=== PATIENT | female | born 1990 | race Caucasian/White ===

== ENCOUNTER 2020-10-23 13:08 | Inpatient (IN) | payer BC ==
[~2020-10-23] VITALS: Ht 172.7 cm; Wt 82.7 kg
[2020-10-23 19:20] VITALS: BP 126/77; PULSE 105; TEMP 98.3
--- NOTE | 2020-10-23 19:20 | NUR ---
1920 [id number] WEEK GEST TO LR6 FOR CYTOTEC INDUCTION OF LABOR. EFM ON. ADM ASSESSMENT COMPLETED AND PERMITS SIGNED. STATES HAS FELT LIKE UTERUS GETTING TIGHT SOMETIMES THROUGHOUT THE DAY BUT NO C/O CONTRACTIONS.
[2020-10-23] MEDS ORDERED: PRENATAL TABLET PO (19:23)
[2020-10-23] MEDS ORDERED: PROTONIX20 MG PO (19:23)
--- NOTE | 2020-10-23 19:50 | NUR ---
1949 INT STARTED AND LAB OBTAINED. DR LIGHT CALLED IN FOR UPDATE OF PT ARRIVAL. 1999 SVE /-2. 2003 CYTOTEC 50 MCG PO GIVEN. UP TO BR WITH HUSBANDS HELP AND THEN RETURNED TO BED WITH HUSBANDS HELP.
[2020-10-23 20:00] VITALS: BP 123/63; PULSE 100
[2020-10-23 20:30] VITALS: BP 117/77; PULSE 95
[2020-10-23 20:55] LABS: BASO % 0.2 % (0.0-2.0); EOS # 0.1 (0.0-0.7); GRAN # 5.6 (1.4-6.5); GRAN % 67.2 % (42.2-75.2); HEMOGLOBIN 12.3 g/dl (12.5-16.0); LYMPH % 24.2 % (20.0-51.0); MEAN CELL VOLUME 88 fl (80.0-100.0); MEAN CORPUSCULAR HEMOGLOBIN 30 pg (27.0-31.0); MEAN CORPUSCULAR HGB CONC 34 g/dl (33.0-37.0); MEAN PLATELET VOLUME 11.3 fl (7.4-10.4); MONO # 0.6 (0.1-0.6); PLATELET COUNT 227 K/mm3 (130-400); RED BLOOD COUNT 4.13 M/mm3 (4.10-5.30); REDCELL DISTRIBUTION WIDTH-CV 12.2 % (11.5-14.5)
[2020-10-23 20:58] LABS: HEMATOCRIT 36.3 % (37.0-47.0)
--- NOTE | 2020-10-23 23:10 | NUR ---
2310 UP TO BR TO VOID. RETURNED TO BED AND TO RIGHT SIDE FOR COMFORT. FHT'S HEARD IN THE 90'S WITH INCREASE TO 130-140 AND DECREASE TO 90'S FPR 10 SECONDS AT A TIME. 2318 FHT'S 80-90'S TURNED TO LEFT SIDE WITH NO IMPROVEMENT. 2320 TO SEMI FOWLERS FOR SVE. NO CERVICAL CHANGE. FHT'S INCREASE TO 130'S. 232 IV LR TO INT SITE AND BOLUS GIVEN. REMAINS IN [facility].
[2020-10-23 23:30] VITALS: BP 117/67; PULSE 82
[2020-10-23 23:45] VITALS: BP 113/64; PULSE 76
[2020-10-24] VITALS (61 sets, daily range): BP systolic 89–142; BP diastolic 53–88; PULSE 65–147; TEMP 97.9–98.9
--- NOTE | 2020-10-24 | NUR ---
0000 VISTARIL 50 MG PO GIVEN
--- NOTE | 2020-10-24 00:50 | NUR ---
0050 UP TO BR WITH ASSIST. RETURNED TO BED ON LEFT SIDE. FHT'S 120'S ON RETURN TO BED.
--- NOTE | 2020-10-24 06:13 | NUR ---
0530 SITTING ON BIRTHING BALL FOR COMFORT. DR LIGHT NOTIFIED AND REPORT GIVEN. ORDER TO START PITOCIN INDUCTION PER PROTOCOL GIVEN. 0545 RETURNED TO BED. 0555 IVPB ABX STARTED AND PITOCIN PER PUMP STARTED.
--- NOTE | 2020-10-24 07:00 | NUR ---
PT UP TO BATHROOM. TO CHAIR. ATTEMPTED TO FIND FHT'S. AUDIBLE IN THE 80'S. BACK TO BED. HEART TONES REMAIN IN THE 70-80'S. MATERNAL HEART RATE 60-70'S. BOLUS STARTED. REPOSITIONED. HEART TONES BACK UP TO 120-130'S.
--- NOTE | 2020-10-24 08:44 | NUR ---
PT BREATHING THROUGH CONTRACTIONS, REPORTS THEY ARE TAKING HER BREATH AWAY. PT IS WANTING AN EPIDURAL. PHONED GINA SEALS, AT 0840 TO COME FOR EPIDURAL PLACEMENT.
--- NOTE | 2020-10-24 09:15 | NUR ---
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 PT SITTING UP FOR EPIDURAL PLACEMENT. DIFFICULT TO MONITOR FHT'S WITH PT SITTING UP.
--- NOTE | 2020-10-24 09:30 | NUR ---
PT CONTINUES TO SIT UP FOR EPIDURAL. SINGLE SHOT AT 0920 AND TEST DOSE AT 0923 WITH NO ABNORMAL SYMPTOMS OBSERVED OR REPORTED. FHT'S AND CONTRACTIONS REMAINS DIFFICULT TO MONITOR.
--- NOTE | 2020-10-24 09:45 | NUR ---
FHT'S WITH LATE DECELS AND PROLONGED DECEL TO THE 60'S AFTER EPIDURAL PLACEMENT. BOLUS STARTED AT 0933. PT REPOSITIONED RL AT 0936, PITOCIN OFF AT 0936, O2 ON 10L AT 0936. SVE 1-2/80/-2. FHT'S REMAIN DOWN. PT TO KNEE CHEST POSITION. EPHEDRINE 10MG IV GIVEN AT 0940. DR LIGHT CALLED AT 0941 WITH ALL OF THE ABOVE INFORMATION GIVEN AND SHE IS ON HER WAY TO THE HOSPITAL. FHT'S BACK TO 150'S AFTER BEING DOWN FOR 5 1/2 MINUTES. PT REMAINS IN KNEE CHEST POSITION. PT AND UPDATED ON ALL CARES PERFORMED ON HER.
--- NOTE | 2020-10-24 10:00 | NUR ---
FHT'S INTHE 150'S WITH MODERATE VARIABILITY. REPOSITIONED WEDGE LEFT. DR LIGHT CALLS AT 0947-NOTIFIED FHT'S HAVE REMAINED IN THE 150'S WITH NO FURTHER DECELS, STATES SHE WILL BE HERE IN A COUPLE MINUTES. IN AT 0954. SVE UNCHANGED. DR DISCUSSES PLAN OF CARE WITH PT. ALEXIS CATHETER PLACED AT 1000 WITH CLEAR, YELLOW URINE RETURNED.
--- NOTE | 2020-10-24 10:30 | NUR ---
O2 OFF AT 1030. PT REPOSITIONED WEDGE LEFT. DR LIGHT IN AT 1030 AND DISCUSSES THE FHT'S THROUGHOUT THE HOSPITAL STAY WITH PT AND .
--- NOTE | 2020-10-24 10:45 | NUR ---
DR LIGHT BREAKS WATER AT 1040 WITH CLEAR FLUID. SVE /-2. DIFFICULTY MONITORING CONTRACTIONS. REPOSITIONED TOCO.
--- NOTE | 2020-10-24 12:15 | NUR ---
FHT'S WITH RECURRENT SUBTLE LATE DECELS. AND MODERATE VARIABILITY. PT REPOSITIONED WR WITH PEANUT BALL. SVE 2/80/-2 WITH HEAD REMAINING BALLOTABLE.
--- NOTE | 2020-10-24 12:45 | NUR ---
FHT'S WITH LATE DECELS TO THE 70-90'S. PT REPOSITIONED LEFT LATERAL, PITOCIN OFF AT 1232, DR LIGHT CALLED HERE AT 1233-INFORMED HER FHT'S CLIMBING BACK UP TO THE 140-150'S, PT REPOSITIONED, PITOCIN OFF. O2 ON AT 1234. DR LIGHT HERE AT 1242. SVE /-2. FHT'S REMIAN IN THE 140'S WITH MODERATE VARIABILITY. O2 OFF [address] LIGHT AT 1245. PT REPOSITIONED IN [facility].
--- NOTE | 2020-10-24 13:30 | NUR ---
DR TAVERASURE IN AT 1327. SVE WITH NO CHANGE. PITOCIN STARTED AT 2MU AT [address]'S ORDER.
--- NOTE | 2020-10-24 13:45 | NUR ---
FHT'S WITH LATE DECELS, PROLONGED DECEL STARTS AT 1344. PT REPOSITIONED WEDGE LEFT. PITOCIN OFF.
--- NOTE | 2020-10-24 13:57 | NUR ---
PT TO WEDGE RIGHT POSITION WITH NO IMPROVEMENT IN FHT'S AND THEN TO KNEE CHEST WITH GRADUAL IMPROVEMENT OVER [address] LIGHT CALLED AT 1346 WITH INFO ON PROLONGED DECEL, POSTION CHANGES, PITOCIN OFF. SHE ADVISED TO PREP FOR THE OPERATING ROOM. HERE AT 1354. PT AGREES TO . OFF MONITOR AND TO OPERATING ROOM AT 1357.
--- NOTE | 2020-10-24 14:15 | NUR ---
PT TO OPERATING ROOM AT 1401. TRANSFERRED TO OPERATING ROOM BED. WEDGE UNDER RIGHT HIP. SCD'S ON LOWER LEGS. CAUTERY PAD TO RIGHT HIP. FHT'S 157. SAFETY STRAP ACROSS BOTH THIGHS. DURAPREP TO ABDOMEN. TIME OUT 1405 WITH SURGERY STARTED AT 1407. DELIVERY OF MALE AT 1411 AND EXPRESSED DELIVERY OF PLACENTA AT 1412.
--- NOTE | 2020-10-24 14:55 | NUR ---
PT TO PACU AFTER AND TAP BLOCK COMPLETE. AWAKE AND ALERT. ASSESSMENT COMPLETED. FUNDUS FIRM WITH MINIMAL BLEEDING OBSERVED.
--- NOTE | 2020-10-24 15:00 | NUR ---
PT REPORTING PAIN 9/10 AT INCISION SITE. STATES IT IS BURNING. GINA SEALS, GIVES FENTANYL AND TORADOL IM AT 1500.
--- NOTE | 2020-10-24 15:10 | NUR ---
CONTINUES TO CRY IN PAIN. FENTANYL GIVEN IV AT 1510 BY GINA SEALS. ICE PACK TO INCISION SITE.
--- NOTE | 2020-10-24 15:15 | NUR ---
TWO PERCOCET GIVEN AT 1515. SPRITE AND CRACKERS GIVEN.
--- NOTE | 2020-10-24 17:35 | NUR ---
PERICARE PERFORMED. NEW PERIPAD, CHUXH PAD, AND GOWN IN PLACE.
[2020-10-25 03:00] VITALS: BP 102/55; PULSE 79; TEMP 98.2
[2020-10-25 08:00] VITALS: BP 126/64; PULSE 96; TEMP 98.2
[2020-10-25] MEDS ORDERED: IBU800 M1 PO (09:43)
[2020-10-25] MEDS ORDERED: PERCOCET 325 MG1 TA2 PO (09:43)
--- NOTE | 2020-10-25 09:45 | NUR ---
Initial visit; Mom thanked for offering congratulations for the of her son. thanked patient for choosing [facility].
[2020-10-25 15:19] VITALS: BP 108/65; PULSE 93; TEMP 98
[2020-10-25 20:00] VITALS: BP 104/66; PULSE 88; TEMP 98.1
[2020-10-26 02:01] VITALS: BP 110/67; PULSE 72; TEMP 97.9
[2020-10-26 08:25] VITALS: BP 128/72; PULSE 89; TEMP 98
[2020-10-26 16:50] VITALS: BP 119/74; PULSE 91; TEMP 98.2
== END 2020-10-26 17:15 | disposition home or self-care (01) | DRG 788 ==
LOC: OB 13:08 → LDR 19:05 → OB 10-24 15:35
PROVIDERS: ADMIT Student in an Organized Health Care Education/Training Program
PROC: 10D00Z1 Extraction of Products of Conception, Low, Open Approach (ICD-10-PCS; principal; 2020-10-24)
DX: O99.824 Streptococcus B carrier state complicating childbirth (principal); O76 Abnormality in fetal heart rate and rhythm complicating labor and delivery; Z3A.39 39 weeks gestation of pregnancy; Z37.0 Single live birth; Z85.820 Personal history of malignant melanoma of skin; O36.63X0 Maternal care for excessive fetal growth, third trimester, not applicable or unspecified; Z37.9 Outcome of delivery, unspecified
CPT/HCPCS: J0690; J1885; J2370; J2405; J2540; J2590; J2795; J3010; J7120

== ENCOUNTER → 2020-10-23 | Outpatient (CLI) | payer BC ==
[~2020-10-23] MED LIST: IBU800 M1 PO; PERCOCET 325 MG1 TA2 PO; PRENATAL TABLET PO; PROTONIX20 MG PO
== END | disposition still patient (30) ==
LOC: ZCOL.LAB 10-19 13:07
DX: Z20.822 Contact with and (suspected) exposure to COVID-19 (principal)

== ENCOUNTER 2023-05-21 08:03 | Inpatient (IN) | payer BC ==
[~2023-05-21] VITALS: Ht 170.3 cm; Wt 86.4 kg
[2023-05-21] VITALS (15 sets, daily range): BP systolic 96–138; BP diastolic 56–75; PULSE 68–116; TEMP 97.8–98.5
[2023-05-21 08:56] LABS: BASO % 0.2 % (0.0-2.0); EOS # 0.1 K/mm3 (0.0-0.7); EOS % 1.1 % (0.0-4.0); GRAN # 5.8 K/mm3 (1.4-6.5); GRAN % 68.5 % (42.2-75.2); HEMOGLOBIN 11.8 g/dl (12.5-16.0); LYMPH # 1.9 K/mm3 (1.2-3.4); LYMPH % 22.4 % (20.0-51.0); MEAN CELL VOLUME 90 fl (80.0-100.0); MEAN CORPUSCULAR HEMOGLOBIN 31 pg (27-31); MEAN CORPUSCULAR HGB CONC 34 g/dl (33.0-37.0); MEAN PLATELET VOLUME 10.7 fl (7.4-10.4); MONO # 0.6 K/mm3 (0.1-0.6); PLATELET COUNT 220 K/mm3 (130-400); RED BLOOD COUNT 3.87 M/mm3 (4.10-5.30); REDCELL DISTRIBUTION WIDTH-CV 13.4 % (11.5-14.5)
[2023-05-21] MEDS ORDERED: COLACE 100100 MG/CAP PO (08:59)
[2023-05-21 09:03] LABS: HEMATOCRIT 34.7 % (37.0-47.0)
[2023-05-22 02:07] VITALS: BP 128/72; PULSE 89; TEMP 97.8
[2023-05-22 06:45] VITALS: BP 127/72; PULSE 83; TEMP 97.9
[2023-05-22] MEDS ORDERED: PERCOCET 325 MG1 TA2 PO (09:00)
[2023-05-22] MEDS ORDERED: IBU800 M1 PO (09:00)
--- NOTE | 2023-05-22 10:24 | NUR ---
Initial visit; Patient thanked Supervisor Broadloom for looking in on her and offering congratulations and God's Blessings for the of her son. Supervisor Broadloom thanked mom for choosing [facility].
[2023-05-22 16:00] VITALS: BP 117/70; PULSE 70; TEMP 98.1
[2023-05-22 20:37] VITALS: BP 107/70; PULSE 87; TEMP 98.1
[2023-05-23 06:30] VITALS: BP 105/80; PULSE 90; TEMP 98
[2023-05-23 10:30] VITALS: BP 108/67; PULSE 82; TEMP 97.8
--- NOTE | 2023-05-23 11:30 | NUR ---
DISMISSAL INSTRUCTIONS GIVEN TO PT. VERBALIZE UNDERSTANDING. DISMISSED TO HOME AMBULATORY WITH .
== END 2023-05-23 11:30 | disposition home or self-care (01) | DRG 788 ==
LOC: OB 08:03
PROVIDERS: ADMIT Student in an Organized Health Care Education/Training Program
PROC: 10D00Z1 Extraction of Products of Conception, Low, Open Approach (ICD-10-PCS; principal; 2023-05-21)
DX: O34.211 Maternal care for low transverse scar from previous cesarean delivery (principal); Z3A.39 39 weeks gestation of pregnancy; O99.824 Streptococcus B carrier state complicating childbirth; Z37.0 Single live birth; K21.9 Gastro-esophageal reflux disease without esophagitis; O99.62 Diseases of the digestive system complicating childbirth; O69.81X0 Labor and delivery complicated by cord around neck, without compression, not applicable or unspecified
CPT/HCPCS: J0665; J0690; J1100; J1885; J2371; J2405; J2590; J2765; J7120